=== PATIENT | female | born 1975 | race Caucasian/White ===

== ENCOUNTER 2018-02-10 18:25 | Outpatient (CLI) | payer OTHER | END 2018-02-10 21:00 | disposition home or self-care (01) | LOC: OBT 18:25 → L-D 18:26 → OBT 21:00 | DX: O26.893 Other specified pregnancy related conditions, third trimester (principal); Z3A.37 37 weeks gestation of pregnancy; R10.2 Pelvic and perineal pain | CPT/HCPCS: 76815 ==

== ENCOUNTER 2018-02-11 13:55 | Outpatient (CLI) | payer OTHER | END 2018-02-11 14:46 | disposition home or self-care (01) | LOC: OBT 13:55 → L-D 13:55 → OBT 14:46 | DX: O26.893 Other specified pregnancy related conditions, third trimester (principal); Z3A.37 37 weeks gestation of pregnancy; R07.89 Other chest pain | CPT/HCPCS: Z7500 ==

== ENCOUNTER 2018-02-20 16:42 | Inpatient (IN) | payer OTHER ==
[2018-02-20] MEDS ORDERED: METHYLERGONOVINE 0.2 MG INJ IM (22:00)
[2018-02-20] MEDS ORDERED: BUTORPHANOL 2 MG INJ IV (22:00)
[2018-02-20] MEDS ORDERED: LIDOCAINE 1% (MPF) 30 ML INJ INJ (22:00)
[2018-02-20] MEDS ORDERED: OXYTOCIN 30 UNITS/LR 500 ML IV (22:00)
[2018-02-20] MEDS ORDERED: MISOPROSTOL 200 MCG TAB PR (22:00)
[2018-02-20] MEDS ORDERED: CARBOPROST 250 MCG INJ IM (22:00)
[2018-02-21 01:10] LABS: ADD MAN DIFF? NO
[2018-02-21 01:18] LABS: BASOPHILS % 0.3 % (0.0-2.0); EOSINOPHILS # 0.1 10^3/ul (0.0-0.5); EOSINOPHILS % 1.1 % (0.0-7.0); HEMATOCRIT 35.4 % (37.0-47.0); HEMOGLOBIN 11.4 g/dl (12.0-16.0); LYMPHOCYTES # 1.6 10^3/ul (0.8-2.9); LYMPHOCYTES % 14.7 % (15.0-51.0); MEAN CORPUSCULAR HEMOGLOBIN 28.6 pg (29.0-33.0); MEAN CORPUSCULAR HGB CONC 32.2 g/dl (32.0-37.0); MEAN CORPUSCULAR VOLUME 88.7 fl (82.0-101.0); MEAN PLATELET VOLUME 11.9 fl (7.4-10.4); MONOCYTE # 0.6 10^3/ul (0.3-0.9); MONOCYTES % 5.7 % (0.0-11.0); NEUTROPHIL # 8.5 10^3/ul (1.6-7.5); PLATELET COUNT 148 10^3/UL (140-415); RED BLOOD COUNT 3.99 10^6/ul (4.20-5.40); RED CELL DISTRIBUTION WIDTH 15.5 % (11.5-14.5)
[2018-02-21] MEDS: LACTATED RINGER'S 1,000 ML IV ×4 (01:24→20:21)
[2018-02-21 01:42] LABS: INR 0.96; PROTIME 12.9 Sec (11.9-14.9)
[2018-02-21 01:43] LABS: PARTIAL THROMBOPLASTIN TIME 26.1 Sec (23.0-35.0)
[2018-02-21 02:06] LABS: HEPATITIS B SURFACE ANTIGEN NEGATIVE (NEGATIVE)
[2018-02-21] MEDS: AMPICILLIN 2 GM/NS (PMX) 100 ML IV (05:32)
[2018-02-21] MEDS: OXYTOCIN 30 UNITS/LR 500 ML IV (05:34)
[2018-02-21] MEDS: AMPICILLIN 1 GM/NS (PMX) 50 ML IV ×4 (10:00→22:20)
[2018-02-21 15:03] LABS: RAPID PLASMA REAGIN NONREACTIVE (NR)
[2018-02-22] MEDS: LACTATED RINGER'S 1,000 ML IV ×2 (00:35→06:03)
[2018-02-22] MEDS ORDERED: FENTAnyl 2MCG/ML-ROPIV 0.2% 100 ML (01:09)
[2018-02-22] MEDS ORDERED: DIPHENHYDRAMINE 50 MG INJ IV (01:30)
[2018-02-22] MEDS ORDERED: ONDANSETRON 4 MG INJ IV ×2 (01:30→13:30)
[2018-02-22] MEDS ORDERED: NALOXONE (0.4 MG/ML) INJ IV (01:30)
[2018-02-22] MEDS ORDERED: NALBUPHINE HCL (10 MG/1 ML) INJ IV (01:30)
[2018-02-22] MEDS: FENTAnyl 2MCG/ML-ROPIV 0.2% 100 ML BAG EPI ×2 (01:56→08:24)
[2018-02-22] MEDS: AMPICILLIN 1 GM/NS (PMX) 50 ML IV ×2 (02:00→06:04)
[2018-02-22 06:29] LABS: ADD MAN DIFF? NO
[2018-02-22 06:50] LABS: WHITE BLOOD COUNT 11.1 10^3/ul (4.8-10.8)
[2018-02-22 06:50] LABS: BASOPHILS % 0.3 % (0.0-2.0); EOSINOPHILS # 0.1 10^3/ul (0.0-0.5); EOSINOPHILS % 0.6 % (0.0-7.0); HEMATOCRIT 35.8 % (37.0-47.0); HEMOGLOBIN 11.4 g/dl (12.0-16.0); LYMPHOCYTES # 1.1 10^3/ul (0.8-2.9); LYMPHOCYTES % 9.9 % (15.0-51.0); MEAN CORPUSCULAR HEMOGLOBIN 28.4 pg (29.0-33.0); MEAN CORPUSCULAR HGB CONC 31.8 g/dl (32.0-37.0); MEAN CORPUSCULAR VOLUME 89.1 fl (82.0-101.0); MEAN PLATELET VOLUME 11.8 fl (7.4-10.4); MONOCYTE # 0.6 10^3/ul (0.3-0.9); MONOCYTES % 5.5 % (0.0-11.0); NEUTROPHIL # 9.1 10^3/ul (1.6-7.5); NEUTROPHILS % 82.7 % (39.0-77.0); PLATELET COUNT 147 10^3/UL (140-415); RED BLOOD COUNT 4.02 10^6/ul (4.20-5.40); RED CELL DISTRIBUTION WIDTH 15.8 % (11.5-14.5)
[2018-02-22 07:03] LABS: ALANINE AMINOTRANSFERASE 36 IU/L (13-69); ALBUMIN 3.1 g/dl (3.3-4.9); ALKALINE PHOSPHATASE 211 IU/L (42-121); ANION GAP 10 (5-13); ASPARTATE AMINO TRANSFERASE 73 IU/L (15-46); BILIRUBIN,INDIRECT 1.1 mg/dl (0-1.1); BILIRUBIN,TOTAL 1.1 mg/dl (0.2-1.3); BLOOD UREA NITROGEN 8 mg/dl (7-20); CALCIUM 8.8 mg/dl (8.4-10.2); CARBON DIOXIDE 23 mmol/L (21-31); CHLORIDE 104 mmol/L (97-110); CREATININE 0.54 mg/dl (0.44-1.00); Estimated GFR > 60 mL/min (>60); GLUCOSE 77 mg/dl (70-220); POTASSIUM 4.3 mmol/L (3.5-5.1); SODIUM 137 mmol/L (135-144); TOTAL PROTEIN 6.2 g/dl (6.1-8.1)
[2018-02-22] MEDS ORDERED: MINERAL OIL LIGHT 10 ML VIAL (09:36)
[2018-02-22] MEDS: OXYTOCIN 30 UNITS/LR 500 ML IV ×3 (10:07→17:57)
[2018-02-22] MEDS: IBUPROFEN 600 MG TAB PO ×2 (13:19→17:55)
[2018-02-22] MEDS ORDERED: OXYCODONE/ASPIRIN (4.88/325) TAB PO ×2 (13:30)
[2018-02-22] MEDS ORDERED: BENZOCAINE 20% 56 ML SPRAY TOP (13:30)
[2018-02-22] MEDS ORDERED: WITCH HAZEL/GLYCERIN PAD PR (13:30)
[2018-02-22] MEDS ORDERED: ACETAMINOPHEN 325 MG TAB PO (13:30)
[2018-02-22] MEDS ORDERED: HYDROCODONE/APAP (5/325) TAB PO ×2 (13:30)
[2018-02-22] MEDS: LANOLIN HPA 1 PKT TOP (17:55)
[2018-02-22] MEDS: SENNA/DOCUSATE NA (8.6MG/50MG) TAB PO (20:40)
[2018-02-23] MEDS: IBUPROFEN 600 MG TAB PO ×5 (00:20→23:46)
[2018-02-23 06:20] LABS: ADD MAN DIFF? NO
[2018-02-23 06:29] LABS: BASOPHILS % 0.3 % (0.0-2.0); EOSINOPHILS # 0.2 10^3/ul (0.0-0.5); EOSINOPHILS % 1.8 % (0.0-7.0); HEMATOCRIT 36.9 % (37.0-47.0); HEMOGLOBIN 11.8 g/dl (12.0-16.0); LYMPHOCYTES % 20.7 % (15.0-51.0); MEAN CORPUSCULAR HEMOGLOBIN 28.2 pg (29.0-33.0); MEAN CORPUSCULAR VOLUME 88.1 fl (82.0-101.0); MEAN PLATELET VOLUME 12.2 fl (7.4-10.4); MONOCYTE # 0.7 10^3/ul (0.3-0.9); MONOCYTES % 7.3 % (0.0-11.0); NEUTROPHIL # 6.7 10^3/ul (1.6-7.5); NEUTROPHILS % 68.8 % (39.0-77.0); PLATELET COUNT 167 10^3/UL (140-415); RED BLOOD COUNT 4.19 10^6/ul (4.20-5.40); RED CELL DISTRIBUTION WIDTH 15.7 % (11.5-14.5)
[2018-02-23 06:29] LABS: WHITE BLOOD COUNT 9.7 10^3/ul (4.8-10.8)
[2018-02-23] MEDS: SENNA/DOCUSATE NA (8.6MG/50MG) TAB PO ×2 (08:36→20:22)
[2018-02-24] MEDS: IBUPROFEN 600 MG TAB PO ×4 (05:40→23:30)
[2018-02-24] MEDS: MEASLES,MUMPS,RUBELLA VACCINE INJ SC* (09:00)
[2018-02-24] MEDS: SENNA/DOCUSATE NA (8.6MG/50MG) TAB PO ×2 (09:00→21:22)
[2018-02-25] MEDS: IBUPROFEN 600 MG TAB PO (05:37)
[2018-02-25] MEDS: SENNA/DOCUSATE NA (8.6MG/50MG) TAB PO (09:07)
== END 2018-02-25 13:16 | disposition home or self-care (01) | DRG 807 ==
LOC: PP1 02-22 13:18 → L-D 16:42
PROVIDERS: Obstetrics & Gynecology
PROC: 10E0XZZ Delivery of Products of Conception, External Approach (ICD-10-PCS; principal; 2018-02-22)
PROC: 3E033VJ Introduction of Other Hormone into Peripheral Vein, Percutaneous Approach (ICD-10-PCS; 2018-02-22)
DX: O69.81X0 Labor and delivery complicated by cord around neck, without compression, not applicable or unspecified (principal); Z37.0 Single live birth; S92.352A Displaced fracture of fifth metatarsal bone, left foot, initial encounter for closed fracture; Y93.01 Activity, walking, marching and hiking; Y92.239 Unspecified place in hospital as the place of occurrence of the external cause; Z3A.39 39 weeks gestation of pregnancy
CPT/HCPCS: 62319; 73630-LT; 76815; 80053; 85025; 85610; 85730; 86592; 86850; 86900; 86901; 87340